=== PATIENT | female | born 1940 | race Caucasian/White ===

== ENCOUNTER → 2018-06-11 | Outpatient (CLI) | payer MEDICARE ==
[~2018-06-11] MED LIST: AMIT10TA6 PO; HYDR-2132 PO; HYDR-4060 PO; LISI-617 PO; MULT1TAB70 PO; RIVA10TA PO; ZOLP5TAB2 PO
== END | disposition home or self-care (01) ==
LOC: RAH 13:53
PROVIDERS: ATTEND Physical Medicine & Rehabilitation
DX: M47.22 Other spondylosis with radiculopathy, cervical region (principal); M48.02 Spinal stenosis, cervical region; M50.123 Cervical disc disorder at C6-C7 level with radiculopathy; J33.8 Other polyp of sinus
CPT/HCPCS: 72141

== ENCOUNTER → 2018-06-21 | Outpatient (CLI) | payer MEDICARE | END | disposition home or self-care (01) | LOC: RAH 14:17 | PROVIDERS: ATTEND Physical Medicine & Rehabilitation | DX: M25.512 Pain in left shoulder (principal); Z72.89 Other problems related to lifestyle | CPT/HCPCS: 73030 ==

== ENCOUNTER → 2018-08-26 | Outpatient (CLI) | payer MEDICARE | END | disposition home or self-care (01) | LOC: RAH 14:46 | PROVIDERS: ATTEND Physical Medicine & Rehabilitation | DX: M17.0 Bilateral primary osteoarthritis of knee (principal) | CPT/HCPCS: 73560 ==

== ENCOUNTER → 2018-08-27 | Outpatient (CLI) | payer MEDICARE | END | disposition home or self-care (01) | LOC: RAH 14:07 | PROVIDERS: ATTEND Physical Medicine & Rehabilitation | DX: M47.816 Spondylosis without myelopathy or radiculopathy, lumbar region (principal); M85.88 Other specified disorders of bone density and structure, other site | CPT/HCPCS: 72114 ==

== ENCOUNTER → 2018-08-31 | Outpatient (CLI) | payer MEDICARE | END | disposition home or self-care (01) | LOC: RAH 13:17 | PROVIDERS: ATTEND Physical Medicine & Rehabilitation | DX: M47.814 Spondylosis without myelopathy or radiculopathy, thoracic region (principal); Z90.49 Acquired absence of other specified parts of digestive tract | CPT/HCPCS: 72070 ==

== ENCOUNTER → 2018-09-08 | Outpatient (CLI) | payer MEDICARE | END | disposition home or self-care (01) | LOC: RAH 11:44 | PROVIDERS: ATTEND Physical Medicine & Rehabilitation | DX: G31.9 Degenerative disease of nervous system, unspecified (principal) | CPT/HCPCS: 70551 ==

== ENCOUNTER → 2018-11-10 | Outpatient (CLI) | payer MEDICARE | END | disposition home or self-care (01) | LOC: RAH 11:28 | PROVIDERS: ATTEND Physical Medicine & Rehabilitation | DX: R07.81 Pleurodynia (principal); J47.9 Bronchiectasis, uncomplicated; Z90.49 Acquired absence of other specified parts of digestive tract; M47.814 Spondylosis without myelopathy or radiculopathy, thoracic region | CPT/HCPCS: 71111 ==

== ENCOUNTER → 2019-02-22 | Outpatient (CLI) | payer MEDICARE ==
[~2019-02-22] MED LIST changes: +GADODIAMIDE 10 MMOL/20 ML VIAL IV ONE; +IOPAMIDOL 10 ML VIAL ONE; +LIDOCAINE HCL 1% 20 ML VIAL ONE
== END ==
LOC: RAH 12:39
PROVIDERS: ATTEND Physical Medicine & Rehabilitation
DX: M75.102 Unspecified rotator cuff tear or rupture of left shoulder, not specified as traumatic (principal); M75.82 Other shoulder lesions, left shoulder; M25.512 Pain in left shoulder; Z88.3 Allergy status to other anti-infective agents; Z79.01 Long term (current) use of anticoagulants; Z79.899 Other long term (current) drug therapy
CPT/HCPCS: 23350; 73223; 77002; A9579; Q9966

== ENCOUNTER → 2019-02-24 | Outpatient (CLI) | payer MEDICARE ==
[~2019-02-24] MED LIST changes: -GADODIAMIDE 10 MMOL/20 ML VIAL IV ONE; -IOPAMIDOL 10 ML VIAL ONE; -LIDOCAINE HCL 1% 20 ML VIAL ONE
== END | disposition home or self-care (01) ==
LOC: RAH 10:43
PROVIDERS: ATTEND Physical Medicine & Rehabilitation
DX: M47.812 Spondylosis without myelopathy or radiculopathy, cervical region (principal); M25.78 Osteophyte, vertebrae; M48.02 Spinal stenosis, cervical region
CPT/HCPCS: 72141

== ENCOUNTER 2019-04-22 08:03 | Day surgery (SDC) | payer MEDICARE ==
[2019-04-21 15:27] VITALS: BP 161/81
[~2019-04-22] VITALS: Ht 165.1 cm; Wt 75.3 kg
[2019-04-22] VITALS (17 sets, daily range): BP systolic 130–158; BP diastolic 56–80
[2019-04-22] MEDS: CEFAZOLIN SODIUM 1 GM VIAL IVP SCH ×2 (06:00→09:55)
[~2019-04-22 08:03] MED LIST changes: -AMIT10TA6 PO; -HYDR-2132 PO; -HYDR-4060 PO; +PHARMACY COMMUNICATION MISC SCH; -RIVA10TA PO; -ZOLP5TAB2 PO
[2019-04-22] MEDS ORDERED: EPINEPHRINE 1 MG/ML 30ML VIAL IJ ONE (08:30)
[2019-04-22] MEDS ORDERED: LACTATED RINGERS 1000ML 1,000 ML IV ONE (08:42)
--- NOTE | 2019-04-22 08:45 | NUR ---
PAIN applied x2 ice packs to left shoulder Dr Singh aware Addendum: 04/22/19 at 0907 by JOSUE RAMIREZ RN RN Amended: Links added.
--- NOTE | 2019-04-22 09:09 | NUR ---
SPIRITUAL SUPPORT pt s preacher here at bedside praying with pt and Addendum: 04/22/19 at 0910 by JOSUE RAMIREZ RN RN Amended: Links added.
[2019-04-22] MEDS ORDERED: FENTANYL CITRATE PF 50 MCG/1 ML 2ML VIAL ONE (09:21)
[2019-04-22] MEDS ORDERED: LIDOCAINE PF 2% 5ML ABBOJECT ONE (09:25)
[2019-04-22] MEDS ORDERED: ROCURONIUM 10MG/1ML SYR 10 MG/ML ML ONE (09:26)
[2019-04-22] MEDS ORDERED: ONDANSETRON HCL 4 MG/2 ML VIAL ONE (09:26)
[2019-04-22] MEDS ORDERED: MIDAZOLAM HCL 1 MG/ML 2ML VIAL ONE (09:26)
[2019-04-22] MEDS ORDERED: PROPOFOL 10 MG/ML 20ML VIAL IV ONE (09:26)
[2019-04-22] MEDS ORDERED: CHOL5POW MC (09:28)
[2019-04-22] MEDS ORDERED: CALC-322 PO (09:29)
[2019-04-22] MEDS ORDERED: ROPIVACAINE 0.5% 5MG/ML 30ML IJ ONE (09:37)
[2019-04-22] MEDS ORDERED: DEXAMETHASONE SOD PHOSPHATE 4 MG/ML 1ML VIAL ONE (12:17)
[2019-04-22] MEDS ORDERED: GLYCOPYRROLATE 1 MG/5 ML SYRINGE ONE (12:20)
[2019-04-22] MEDS ORDERED: NEOSTIGMINE 5MG/5ML SYR IV ONE (12:20)
[2019-04-22] MEDS ORDERED: NAPR-1192 PO (12:59)
[2019-04-22] MEDS ORDERED: HYDR-4457 PO (12:59)
[2019-04-22] MEDS ORDERED: CEPH500B PO (12:59)
--- NOTE | 2019-04-22 14:00 | NUR ---
PATIENT ARRIVED PATIENT ARRIVED TO DAY PATIENT VIA BED BY NINA SAM. PATIENT DROWSY, RESPONDS TO VERBAL. PATIENT ASLEEP AND NO C/O PAIN AT THIS TIME. DRESSINGS TO LEFT SHOULDER ARE DRY AND INTACT, NO DRAINAGE OR BLEEDING. LEFT ARM IN SLING. SIDERAILS UP X2, BED IN LOWEST POSITION AND CALL [facility] IN REACH.
--- NOTE | 2019-04-22 14:30 | NUR ---
DISCHARGE INSTRUCTIONS DISCHARGE INSTRUCTIONS PROVIDED TO PATIENT'S SPOUSE. FOLLOW UP APPOINTMENTS PROVIDED AND INSTRUCTIONS ON ACTIVITY/WOUNDCARE/MEDICATIONS PROVIDED WELL. PATIENT'S SPOUSE ([place]) INSTRUCTED TO CALL DR JOSE OFFICE WITH ANY QUESTIONS/CONCERNS. PATIENT'S SPOUSE VERBALIZED UNDERSTANDING OF DISCHARGE INSTRUCTIONS. ALL QUESTIONS/CONCERNS ADDRESSED.
--- NOTE | 2019-04-22 14:45 | NUR ---
PATIENT ASSISTED TO GET DRESSED. PATIENT UNABLE TO STAND UP ON HER OWN. PATIENT STATES THAT SHE IS VERY WEAK AND CANNOT STAND UP. PATIENT ASSISTED TO STAND BY THE SIDE OF THE BED BY SUNI GONZALEZ AND NINA REYES AND MYSELF. PATIENT'S SHORTS WERE PUT ON HER AND HER BLOUSE WELL. PATIENT CONTINUES TO STATE THAT SHE IS TOO WEAK AND IS NOT GOING HOME THIS WAY. WILL CONTINUE TO MONITOR PATIENT AND ALLOW HER TO HAVE MORE TIME TO LET THE ANESTHESIA WEAR OFF. PATIENT'S AT BEDSIDE.
--- NOTE | 2019-04-22 15:30 | NUR ---
PATIENT C/O DISCOMFORT TO LEFT ARM, STATES SHE FEELS LIKE SHE HAS A KNOT IN HER LEFT UPPER ARM. PATIENT'S ARM REPOSITIONED AND PATIENT VERBALIZED RELIEF. PATIENT STILL STATES THAT SHE IS TOO WEAK TO STAND UP AND WANTS MORE TIME TO REST. PATIENT'S AT BEDSIDE.
--- NOTE | 2019-04-22 16:00 | NUR ---
PATIENT ASSISTED TO STAND AT THE SIDE OF THE BED. PATIENT ABLE TO STAND WITH 1 PERSON TO HELP HER UP FROM THE BED AND STAND BY ASSIST SHE WAS STANDING UP. PATIENT STATES THAT SHE DOES NOT FEEL WEAK SHE DID EARLIER.
--- NOTE | 2019-04-22 16:15 | NUR ---
PATIENT ABLE TO AMBULATE TO RESTROOM (STAND BY ASSIST) AND AMBULATE BACK TO HER ROOM (STAND BY ASSIST).
--- NOTE | 2019-04-22 16:15 | NUR ---
PATIENT ASSISTED TO GET UP FROM BEDSIDE CHAIR AND AMBULATE IN HALLWAY (STAND BY ASSIST). PATIENT TOLERATED WELL AND ASSITED BACK IN TO CHAIR. PATIENT STATES THAT SHE IS STILL NOT READY TO GO HOME JUST YET.
--- NOTE | 2019-04-22 17:26 | NUR ---
PATIENT STATES THAT SHE IS READY TO GO HOME AND FEELS STRONG ENOUGH TO WALK UP THE STEPS TO GET INTO HER MOBILE HOME. PATIENT ABLE TO GET INTO WHEELCHAIR UNASSISTED AT THIS TIME. PATIENT DISCHARGED FROM FACILITY VIA WHEELCHAIR AND TAKEN TO PRIVATE VEHICLE BY SUNI GONZALEZ.
== END 2019-04-22 17:26 | disposition home or self-care (01) ==
LOC: DAH 08:03
PROVIDERS: ATTEND Orthopaedic Surgery
DX: M75.102 Unspecified rotator cuff tear or rupture of left shoulder, not specified as traumatic (principal); M25.812 Other specified joint disorders, left shoulder; M19.012 Primary osteoarthritis, left shoulder; Z79.899 Other long term (current) drug therapy; I10 Essential (primary) hypertension; Z90.49 Acquired absence of other specified parts of digestive tract; Z96.651 Presence of right artificial knee joint; Z98.890 Other specified postprocedural states; Z88.5 Allergy status to narcotic agent; G89.29 Other chronic pain
CPT/HCPCS: 29823; 29824; 29826; 29827; A4215; A4221; A4222; A4223; A4335; A4600; A4649 ×6; A4663; A4930; A6204; C1713; J0171; J0690; J1100; J2001; J2250; J2405; J2704; J2710; J2795; J3010; J3490; J7120 ×2